=== PATIENT | female | born 1985 | race Two or more races ===

== ENCOUNTER 2018-12-23 18:52 | Emergency (ER) | payer OTHER ==
[~2018-12-23] VITALS: Ht 162.6 cm; Wt 59.0 kg
== END 2018-12-23 22:57 | disposition home or self-care (01) ==
LOC: ER 18:52
DX: O03.9 Complete or unspecified spontaneous abortion without complication (principal)

== ENCOUNTER 2019-06-22 12:14 | Emergency (ER) | payer OTHER ==
[~2019-06-22] VITALS: Ht 162.6 cm; Wt 58.1 kg
== END 2019-06-22 15:45 | disposition home or self-care (01) ==
LOC: ER 12:14
DX: B37.3 Candidiasis of vulva and vagina (principal)

== ENCOUNTER 2020-04-16 14:45 | Inpatient (IN) | payer OTHER ==
[~2020-04-16] VITALS: Ht 162.6 cm; Wt 77.1 kg
[2020-04-29] MEDS ORDERED: OBSTETRIX DHA1 EACH PO (08:50)
== END 2020-04-30 11:23 | disposition home or self-care (01) | DRG 807 ==
LOC: OB/GYN 14:45 → LDR 04-28 06:54 → SURG-SUITE 04-28 15:37
PROVIDERS: ADMIT Obstetrics & Gynecology; ATTEND Obstetrics & Gynecology
PROC: 10E0XZZ Delivery of Products of Conception, External Approach (ICD-10-PCS; principal; 2020-04-28)
PROC: 0HQ9XZZ Repair Perineum Skin, External Approach (ICD-10-PCS; 2020-04-28)
PROC: 3E033VJ Introduction of Other Hormone into Peripheral Vein, Percutaneous Approach (ICD-10-PCS; 2020-04-28)
PROC: 10907ZC Drainage of Amniotic Fluid, Therapeutic from Products of Conception, Via Natural or Artificial Opening (ICD-10-PCS; 2020-04-28)
PROC: 4A1HXCZ Monitoring of Products of Conception, Cardiac Rate, External Approach (ICD-10-PCS; 2020-04-28)
DX: O70.0 First degree perineal laceration during delivery (principal); Z37.0 Single live birth; Z3A.39 39 weeks gestation of pregnancy; O99.824 Streptococcus B carrier state complicating childbirth